=== PATIENT | male | born 1990 | race African-American/Black ===

== ENCOUNTER 2023-05-26 00:51 | Emergency (ER) | payer SELFPAY ==
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
[2023-05-26 02:52] VITALS: TEMP 98.2
[2023-05-26 02:53] VITALS: BP 119/76; O2SAT 100
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
== END 2023-05-26 02:48 | disposition home or self-care (01) ==
LOC: ER 00:51
DX: M79.645 Pain in left finger(s) (principal)
CPT/HCPCS: 99283